=== PATIENT | male | born 1990 | race Caucasian/White ===

== ENCOUNTER 2020-07-11 20:28 | Emergency (ER) | payer OTHER, SELFPAY ==
[2020-07-11 20:30] VITALS: BP 143/80; PULSE 98; RESP 18; TEMP 36.4; O2SAT 100; BMI 25.8
[2020-07-11] MEDS: Diphth,Pertuss(Acell),Tet Vac 0.5 ML Vial IM (20:40)
--- NOTE | 2020-07-11 20:47 | ED.VISSUMM ---
- ER Visit Summary Date of Service: 07/11/20 Chief Complaint: Finger laceration History of Present Illness: The patient is a 29 M who presents with a left third finger laceration. About 20 minutes prior to arrival he was working with a miter saw and cut the dorsal portion of his left third finger. He was able to control the bleeding at home. Unknown when his last tetanus shot occurred. He has had for age most the finger. He denies any other symptoms. Physical Examination: Vital signs reviewed. Left hand reveals a 2 cm laceration on the dorsal side of the left third finger between the PIP and MCP joint. He has full range of motion of the finger with minimal pain. Bleeding is controlled at this time. Station is intact distally. Capillary refill less than 2 seconds. Test Results: None performed Emergency Department Course and Treatment: Patient had laceration repair. Chlorhexidine was used to cleanse the wound. 1 cc of lidocaine was used to anesthetize the area locally. 3, 4?0 simple nylon sutures were placed with good wound approximation. Had four-inch motion after repair. Patient will leave sutures in for 7 to 10 days and will follow-up for suture removal. Treatment Plan: [] Disposition: Discharge Impression: Left third finger laceration, 2 cm Laceration repair by ED physician This note was generated with [employer] [place] [employer] [place]-[employer] dictation software. It may contain incorrect words, spelling, and punctuation that were not noted in review of the chart prior to signing ED Disposition - Plan for ED Patient: Disposition: Home or Assisted Living Instructions: ED Laceration All Closures Referrals: Lorena Mandel NP-C [Primary Care Provider] -
[2020-07-11 20:55] VITALS: BP 143/80; PULSE 98; RESP 17
== END 2020-07-11 21:23 | disposition home or self-care (01) ==
LOC: ED 21:03
PROVIDERS: Emergency Provider Emergency Medicine; PCP Nurse Practitioner Primary Care
DX: S61.213A Laceration without foreign body of left middle finger without damage to nail, initial encounter (principal); W29.8XXA Contact with other powered hand tools and household machinery, initial encounter
CPT/HCPCS: 12001; 90471; 90715; 99283

== ENCOUNTER → 2023-08-13 | Outpatient (CLI) | payer BC, SELFPAY ==
[2023-08-13 10:35] LABS: Hematocrit 39.5 % (40-54); Hemoglobin 13.7 g/dL (13.0-16.5); Mean Corp Hgb Conc 34.7 g/dL (32-36); Mean Corpuscular Hgb 31.5 pg (27.0-32.0); Mean Corpuscular Volume 90.8 fL (80-94); Mean Platelet Vol. 9.7 fl (6.2-12.0); Platelet Count 179 K/mm3 (150-450); RBC Distribution Width CV 11.9 % (11.6-14.6); RBC Distribution Width SD 39.5 fl (35.1-43.9); Red Blood Count 4.35 M/mm3 (4.6-6.2); White Blood Count 4.7 K/mm3 (4.4-11.0)
[2023-08-13 11:13] LABS: Hemoglobin A1c 4.8 % (3.8-5.6); Vitamin B12 467 pg/mL (211-911)
[2023-08-13 11:18] LABS: ALB/GLOB Ratio 1.3 RATIO (0.9-2.4); AST(SGOT) 15 U/L (15-37); Alanine Aminotransfer ALT/SGPT 29 U/L (16-61); Alkaline Phosphatase 77 U/L (45-117); Anion Gap 3 (5-15); BUN 11 mg/dL (7-18); BUN/Creat Ratio 12.7 RATIO (10-20); Calcium,Total 8.8 mg/dL (8.5-10.1); Chloride 108 mmol/L (98-107); Creatinine, Serum 0.87 mg/dL (0.70-1.30); EST Glomerular Filtration Rate 107 mL/min (>60); Est Glom Filt Rate - Afr Amer 130 mL/min (>60); Globulin 3.1 g/dL (2.2-4.2); Glucose 118 mg/dL (74-106); Potassium 4.1 mmol/L (3.5-5.1); Protein, Total 7.1 g/dL (6.4-8.2); Sodium Level 139 mmol/L (136-145); Thyroid Stim Hormone (TSH) 1.05 uIU/mL (0.358-3.74)
== END | disposition home or self-care (01) ==
LOC: LAB 09:40
PROVIDERS: PCP Nurse Practitioner Primary Care
DX: R42 Dizziness and giddiness (principal)
CPT/HCPCS: 36415; 80053; 82607; 83036; 84443; 85027

== ENCOUNTER → 2025-04-20 | Outpatient (CLI) | payer OTHER, SELFPAY ==
[2025-04-20 17:45] LABS: Absolute Lymphocyte Count 1.57 X10^3/uL (0.83-4.51); Basophil# 0.02 X10^3/uL; Basophil% 0.4 % (0-1); Eosinophil# 0.13 X10^3/uL; Eosinophils% 2.5 % (0-5); Hematocrit 38.9 % (40-54); Hemoglobin 13.8 g/dL (13.0-16.5); Lymphocyte # 1.57 X10^3/ul (0.83-4.51); Lymphocyte % 30.6 % (19-41); Mean Corp Hgb Conc 35.5 g/dL (32-36); Mean Corpuscular Hgb 32.2 pg (27.0-32.0); Mean Corpuscular Volume 90.7 fL (80-94); Mean Platelet Vol. 9.7 fl (6.2-12.0); Monocyte# 0.38 X10^3/uL; Monocyte% 7.4 % (0-10); NRBC Flagged by Analyzer 0 % (0-5); Neutrophil # 3.01 X10^3/uL (2.7-7.7); Neutrophil % 58.7 % (47-70); Platelet Count 194 K/mm3 (150-450); RBC Distribution Width SD 39.2 fl (35.1-43.9); Red Blood Count 4.29 M/mm3 (4.6-6.2); White Blood Count 5.1 K/mm3 (4.4-11.0)
[2025-04-20 18:08] LABS: ALB/GLOB Ratio 1.9 RATIO (0.9-2.4); AST(SGOT) 25 U/L (<=37); Alanine Aminotransfer ALT/SGPT 23 U/L (<=46); Albumin, Serum 4.7 g/dL (3.5-5.0); Alkaline Phosphatase 85 U/L (40-129); Anion Gap 12 (5-15); BUN 14 mg/dL (4-19); BUN/Creat Ratio 15.8 RATIO (10-20); Calcium,Total 9.6 mg/dL (7.6-11.0); Carbon Dioxide 26.1 mmol/L (21.0-32.0); Chloride 103 mmol/L (98-108); Creatinine, Serum 0.88 mg/dL (0.70-1.20); EST Glomerular Filtration Rate 115 (>60); Globulin 2.4 g/dL (2.2-4.2); Glucose 92 mg/dL (70-99); Potassium 4.1 mmol/L (3.3-5.1); Protein, Total 7.1 g/dL (5.9-8.4); Sodium Level 141 mmol/L (133-145); Total Bilirubin 0.41 mg/dL (0.00-1.30)
[2025-04-23 17:08] LABS: Deamidated Gliadin IgA 4 units (0-19); Deamidated Gliadin IgG 1 units (0-19); Endomysial Antibody IgA Negative (Negative); Immunoglobulin A 126 mg/dL (90-386); t-Transglutaminase IgA <2 U/mL (0-3)
[2025-04-25 18:08] LABS: Beef <0.10 kU/L (Class 0); Chocolate <0.10 kU/L (Class 0); Codfish <0.10 kU/L (Class 0); Corn <0.10 kU/L (Class 0); Egg, Whole <0.10 kU/L (Class 0); Milk (Cow) <0.10 kU/L (Class 0); Mussels <0.10 kU/L (Class 0); Peanut <0.10 kU/L (Class 0); Pork <0.10 kU/L (Class 0); Salmon <0.10 kU/L (Class 0); Shrimp <0.10 kU/L (Class 0); Soybean <0.10 kU/L (Class 0); Tuna <0.10 kU/L (Class 0); Wheat <0.10 kU/L (Class 0)
== END | disposition home or self-care (01) ==
LOC: MFPLAB 15:43
PROVIDERS: Family Medicine; PCP Family Medicine; Referring Provider Family Medicine; Visit Provider Family Medicine
DX: R10.9 Unspecified abdominal pain (principal)
CPT/HCPCS: 36415; 80053; 82784; 83516; 85025; 86003; 86005; 86255